=== PATIENT | female | born 1960 | race Caucasian/White ===

== ENCOUNTER → 2017-01-12 | Outpatient (CLI) | payer BC, OTHER | LOC: FIMAGING 16:10 | DX: Z12.31 Encounter for screening mammogram for malignant neoplasm of breast (principal) | CPT/HCPCS: G0202 ==

== ENCOUNTER → 2017-09-18 | Outpatient (CLI) | payer OTHER | LOC: FIMAGING 14:13 | PROVIDERS: ATTEND Nurse Practitioner Women's Health | DX: Z13.820 Encounter for screening for osteoporosis (principal) ==

== ENCOUNTER → 2018-02-08 | Outpatient (CLI) | payer OTHER | LOC: FIMAGING 15:23 | PROVIDERS: ATTEND Obstetrics & Gynecology | DX: Z12.31 Encounter for screening mammogram for malignant neoplasm of breast (principal) ==